=== PATIENT | male | born 1990 | race Caucasian/White ===

== ENCOUNTER 2021-04-11 08:46 | Emergency (ER) | payer BC, SELFPAY ==
[2021-04-11 09:00] VITALS: BP 142/74; PULSE 96; RESP 16; TEMP 38.9; O2SAT 98
--- NOTE | 2021-04-11 09:01 | ED.URI ---
HPI - URI/Sore Throat General Chief Complaint: Upper Respiratory Infection Stated Complaint: cough/shah Time Seen by Provider: 04/11/21 09:20 Source: patient and RN notes reviewed Mode of arrival: ambulatory Limitations: no limitations History of Present Illness HPI Narrative: 30-year-old male presents with concern for cough, body aches, headache, fever. Reports symptoms started overnight while he was at work. Reports yesterday he had a runny nose. He denies shortness of breath. Denies taking [id number] medications. Reports history of ulcerative colitis. MD elicited complaint: fever, cough and sore throat Related Data Allergies Allergy/AdvReac Type Severity Reaction Status Date / Time No Known Allergies Allergy Verified 04/11/21 09:13 Review of Systems Review of Systems: CONSTITUTIONAL: Reports malaise, fever. Denies chills, sweats EYES: Denies visual changes, redness, or discharge. ENT: Reports rhinorrhea, sore throat. Denies congestion, sinus pain, otalgia CARDIOVASCULAR: Denies chest pain, palpitations, or edema. RESPIRATORY: Reports cough. Denies dyspnea. GASTROINTESTINAL: Denies abdominal pain, nausea, vomiting, diarrhea SKIN: Denies rash or itching. MUSCULOSKELETAL: Reports myalgia. NEUROLOGIC: Reports headache. All systems reviewed & are unremarkable except as noted in HPI and below PMFSH Comments At time of signature, agree with nursing past medical, surgical, social and family history. There is no relevant family history pertinent to the presenting complaint Exam Narrative: GENERAL: Nontoxic-appearing, well-nourished, and in no acute distress. HEAD: Normocephalic EYES: PERRLA, conjunctivae clear ENT: Mucous membranes moist. TM pearly ramachandran with dull light reflex bilaterally; no tragal tenderness. NECK: Supple. No lymphadenopathy CHEST: Clear to auscultation, breath sounds equal. No wheezing, rhonchi, rales, or stridor. No respiratory distress, speaks in full sentences. Cough noted HEART: Regular rate and rhythm. No murmur heard. SKIN: Warm, dry, no rash. NEURO: Alert and oriented x3. PSYCH: Normal mood and affect Course Course Emergency Course: Patient is aware of diagnosis, understands and agrees to treatment plan. Anticipatory guidance given. Patient agrees to follow-up as directed and is aware of reasons to seek care at the emergency department. Portions of this record may have been created with voice recognition software Vital Signs Vital signs: Reviewed. MDM - URI/Sore Throat MDM Narrative Medical decision making narrative: Differential diagnosis considered: Moreno virus, strep pharyngitis, allergic rhinitis, upper respiratory tract infection, sinusitis, rhinosinusitis, nasopharyngitis. viral pharyngitis, otitis media, otitis externa, pneumonia, bronchitis, viral cough syndrome, viral syndrome, and influenza. Exam findings show no acute concerns or changes; patient is non-toxic appearing and is in no distress. Patient is appropriate for outpatient treatment and follow-up. Lab Data Attestation: I reviewed the patient's lab results. Critical Care Time Critical Care Time Critical Care Time: No Discharge Plan Discharge Clinical Impression: COVID-19, Influenza A Patient Disposition: Home, Self-Care Condition: Stable Instructions: Antibiotic Form Additional Instructions: Your rapid COVID test was positive today. The following recommendations have been made by the CDC and local Health Departments, regarding COVID-19: -Those individuals with mild cases of COVID-19 can generally be discontinued from isolation, 10 days AFTER the onset of symptoms AND the resolution of fever for 24hrs (without the use of fever-reducing medications) -Those individuals who were asymptomatic, and tested positive, are discontinued from isolation 10 days AFTER their first positive COVID-19 test -Those individuals with SEVERE to CRITICAL illness or immunocompromised diseases may require up to 20 days of home
== END 2021-04-11 09:40 | disposition home or self-care (01) ==
PROVIDERS: Emergency Provider Nurse Practitioner
DX: U07.1 COVID-19 (principal); J10.1 Influenza due to other identified influenza virus with other respiratory manifestations
CPT/HCPCS: 87081; 87426; 87804; 87880; 99203; C9803; G0463

== ENCOUNTER 2021-08-12 10:38 | Emergency (ER) | payer BC, SELFPAY ==
--- NOTE | 2021-08-12 10:48 | WPDEDEXPGENP ---
HPI - General Ped General Chief complaint: Abdominal Pain Stated complaint: BLOOD IN STOOL Time Seen by Provider: 08/12/21 10:48 Source: patient Mode of arrival: ambulatory Limitations: no limitations Nursing Documentation: reviewed/agree History of Present Illness HPI narrative: 31-year-old male presents with complaint of diarrhea for 2 days with drops of bright red blood in toilet. History of UC. Has not seen his GI doctor for 3 to 4 years due to moving away. Denies abdominal pain. States prescription medication that he used to take has no refills. Called a GI doctor this morning but unable to see him for several weeks. Patient did not work. States this morning he had 9 episodes of diarrhea. He has no concerns for hemorrhoids. All systems reviewed and negative except as noted above. Related Data Allergies Allergy/AdvReac Type Severity Reaction Status Date / Time No Known Allergies Allergy Verified 04/11/21 09:13 Pediatric Review of Systems Review of Systems: CONSTITUTIONAL: Denies fever, chills, or sweats. EYES: Denies visual changes, redness, or discharge. ENT: Denies rhinorrhea, congestion, sore throat, or otalgia. CARDIOVASCULAR: Denies chest pain, palpitations, or edema. RESPIRATORY: Denies cough or dyspnea. GASTROINTESTINAL: Denies abdominal pain, nausea, vomiting. Reports diarrhea with blood at times. GENITOURINARY: Denies dysuria or hematuria. SKIN: Denies rash or itching. MUSCULOSKELETAL: Denies back pain, joint pain, or myalgia. NEUROLOGIC: Denies headache, numbness, or weakness. PSYCHIATRIC: Denies anxiety or depression. All other systems reviewed are negative, except as documented in HPI. PMFSH Comments At time of signature, agree with nursing past medical, surgical, social and family history. There is no relevant family history pertinent to the presenting complaint. Pediatric Exam Narrative: Physical exam: GENERAL: This is a well-nourished, well-developed patient, in no apparent distress. HEAD: normocephalic, atraumatic. EYES: PERRL. Sclera clear/white. Vision is grossly intact. EARS: External ears normal NOSE: External nose normal NECK: Neck supple, non-tender without lymphadenopathy, masses or thyromegaly. CARDIOVASCULAR: Regular rate and rhythm without murmurs, gallops, or rubs. RESPIRATORY: Clear to auscultation. Breath sounds equal bilaterally. No wheezes, rales, or rhonchi. GASTROINTESTINAL: Abdomen soft, non-tender, nondistended. Bowel sounds are active. No hepato-splenomegaly, or palpable masses. No guarding. Refuse rectal exam SKIN: warm, Dry, intact with no suspicious lesions or rash, good texture and turgor. NEURO: awake, alert, and oriented to person, place and time. There were no obvious focal neurologic abnormalities. EXTREMITIES: Normal range of motion to all extremities. Course Course Level of Care: Express Care Visit Vital Signs Vital signs: Vital Signs Temperature 36.5 C 08/12/21 10:53 Pulse Rate 64 08/12/21 10:53 Respiratory Rate 16 08/12/21 10:53 Blood Pressure 140/80 08/12/21 10:53 Pulse Oximetry 100 08/12/21 10:53 Temperature 36.5 C 08/12/21 10:53 Pulse Rate 64 08/12/21 10:53 Respiratory Rate 16 08/12/21 10:53 Blood Pressure 140/80 08/12/21 10:53 Pulse Oximetry 100 08/12/21 10:53 Reviewed Medical Decision Making MDM Narrative Medical decision making narrative: Patient complaining of several episodes of diarrhea over the last 2 days with intermittent blood in stool. He is refusing a rectal exam. He wants to be prescribed mesalamine which is the medication that he took for his UC but ran out of refills. He has not seen his GI doctor for 3 to 4 years and was not able to get in with anyone for several weeks. He is well-appearing. Denies abdominal pain is laughing and talkative. Patient is aware of diagnosis, understands and agrees to treatment plan. Anticipatory guidance given. Patient agrees to follow-up as directed and is aware
[2021-08-12 10:53] VITALS: BP 140/80; PULSE 64; RESP 16; TEMP 36.5; O2SAT 100
== END 2021-08-12 11:10 | disposition home or self-care (01) ==
PROVIDERS: Emergency Provider Nurse Practitioner Family
DX: K92.1 Melena (principal)
CPT/HCPCS: 99213; G0463

== ENCOUNTER 2021-12-17 11:23 | Emergency (ER) | payer BC, SELFPAY ==
--- NOTE | 2021-12-17 11:30 | ED.GENADULT ---
HPI - General Adult General Chief complaint: Abdominal Pain Stated complaint: UC flare up Time Seen by Provider: 12/17/21 11:45 Source: patient and RN notes reviewed Mode of arrival: ambulatory Limitations: no limitations History of Present Illness HPI narrative: 31-year-old male presents to the [facility] with complaints of UC flareup. Patient has a history of ulcerative colitis. Patient reports 2 to 3 days of abdominal pain, diarrhea, rectal bleeding and shedding. Patient states he has not had bleeding since yesterday. Currently out of his mesalamine. Did not follow-up with GI after last visit. Has not seen a GI provider in 3 to 4 years. Denies abdominal pain on exam. Any fevers, nausea, vomiting. Was seen last July for the same at urgent care. Was given 8 weeks of medication so he can follow-up with GI Requesting a work note for 7 days Onset (ago): day(s) (2-3) Related Data Allergies Allergy/AdvReac Type Severity Reaction Status Date / Time Penicillins Allergy Other Verified 12/17/21 11:33 ibuprofen AdvReac Other Verified 12/17/21 11:33 Review of Systems Review of Systems: All systems reviewed & are unremarkable except as noted in HPI and below Constitutional: Constitutional: Reports no additional constitutional complaints, Denies chills and Denies fever(s) Eyes: Eyes: Reports no additional eye complaints ENT: Reports system reviewed and no additional complaints, except as documented Cardiovascular: Cardiovascular: Reports no additional cardiovascular complaints Respiratory: Respiratory: Reports no additional respiratory complaints Gastrointestinal: Gastrointestinal: Reports as per HPI, Reports abdominal pain and Reports diarrhea Musculoskeletal: Musculoskeletal: Reports no additional musculoskeletal complaints Integumentary/Breasts: Skin/Breast: Reports system reviewed and no additional complaints, except as docu Neurologic: Reports system reviewed and no additional complaints, except as documented Psychiatric: Psychiatric: Reports no additional psychiatric complaints Allergic/Immunologic: Allergic/Immunologic: Reports no additional allergic/immunologic complaints [facility] Past Medical History Medical History (Updated 12/17/21 @ 17:18 by Kellie Main APRN) Ulcerative colitis Surgical History Surgical History (Updated 12/17/21 @ 17:19 by Kellie Main APRN) No pertinent past surgical history Social History Social History (Updated 12/17/21 @ 17:19 by Kellie Main APRN) Living arrangements: with family Gender identity (if verbalized by the patient): Male Comments At the time of my signature, I reviewed and agree with the nursing past medical, surgical, social, and family history. There is no relevant family history pertinent to the patient complaint. Exam Const: General: healthy appearing, no acute distress and alert Nutritional Appearance: well nourished Orientation/consciousness: patient oriented x3 Limitations: no limitations HENMT: Head: normal to inspection Ears: external ears normal, TM's normal bilaterally and EAC's normal General nose exam: Normal external nose present and Normal nares present Face and sinus: normal facial exam Throat: posterior oropharynx normal and uvula midline Eyes: General: appearance normal, both eyes and all related structures Conjunctivae: conjunctivae normal Pupils: Equal, round and reactive pupils present Neck: Neck: normal visual inspection, no lymphadenopathy and no meningeal signs Chest: Chest palpation & inspection: normal inspection of the chest Resp: Effort & Inspection: normal respiratory effort and no use of accessory muscles Auscultation: clear to auscultation bilaterally, no crackles, no rales, no rhonchi and no wheezes Cardio: Rate: regular rate Rhythm: regular rhythm GI: GI Palp: Yes Soft to palpation and No Tenderness to palpation present (GI) Auscultation: normal bowel sounds Back/Spine/Pelvis: Cervical Spi
[2021-12-17 11:39] VITALS: BP 137/81; PULSE 75; RESP 16; TEMP 36.5; O2SAT 100
== END 2021-12-17 12:03 | disposition home or self-care (01) ==
PROVIDERS: Emergency Provider Nurse Practitioner
DX: K51.90 Ulcerative colitis, unspecified, without complications (principal)
CPT/HCPCS: 99213; G0463

== ENCOUNTER 2021-12-22 10:38 | Outpatient (CLI) | payer BC, SELFPAY ==
[2021-12-22 12:03] LABS: Toxigenic C. Diff NEGATIVE (NEGATIVE)
[2021-12-22 12:57] LABS: Hematocrit 45.9 % (42.0-52.0); Hemoglobin 14.8 g/dL (14.0-18.0); Mean Corpuscular HGB Conc 32.2 g/dl (32-36); Mean Corpuscular Hemoglobin 26.8 pg (26-34); Mean Platelet Volume 10.3 fl (7.4-10.4); Platelet Count Result 347 k/mm3 (150-375); Red Blood Count 5.53 M/mm3 (4.6-6.20); Red Cell Distribution Width 14.1 % (11.5-14.5); White Blood Count 9.8 K/mm3 (4.5-10.0)
[2021-12-22 13:25] LABS: Alanine Aminotransferase 57 U/L (6-50); Albumin Level 4.7 g/dL (3.5-5.1); Alkaline Phosphatase 127 U/L (38-126); Anion Gap 14 mmol/L (8-16); Aspartate Amino Transferase 39 U/L (17-59); Bilirubin,Total 0.5 mg/dL (0.2-1.3); Blood Urea Nitrogen 9 mg/dL (9-20); CRP 0.6 mg/dL (<1.0); Calcium 9.3 mg/dL (8.4-10.2); Carbon Dioxide 26 mmol/L (22-30); Chloride 100 mmol/L (98-107); Estimated Glomerular Filt Rate > 60; Glucose 92 mg/dL (65-110); Potassium 3.6 mmol/L (3.4-5.0); Sodium 140 mmol/L (137-145)
[2021-12-22 13:36] LABS: Erythrocyte Sedimentation Rate 3 mm/hr (0-20)
[2021-12-28 16:47] LABS: Calprotectin, Stool 217 mcg/g
== END 2021-12-22 10:39 | disposition home or self-care (01) ==
PROVIDERS: PCP Nurse Practitioner Family; Visit Provider Nurse Practitioner Family
DX: K51.90 Ulcerative colitis, unspecified, without complications (principal); K92.1 Melena; R19.7 Diarrhea, unspecified
CPT/HCPCS: 36415; 80053; 83993; 85027; 85652; 86140; 87045; 87177; 87209; 87427; 87493

== ENCOUNTER 2022-01-07 01:20 | Day surgery (SDC) | payer BC, SELFPAY ==
[2022-01-04 08:56] VITALS: BMI 35.0
--- NOTE | 2022-01-05 09:23 | PM.HPGS ---
History of Present Illness History of Present Illness Consent: Risks, benefits, and alternatives have been discussed and questions answered. Patient agrees to proceed with procedure. Chief complaint: ulcerative colitis Narrative: Ivan Morales is a 31 year old male with rectal bleeding and diarrhea. He was diagnosed with ulcerative colitis about 5 years ago. He initially was started on mesalamine but had gotten off of that and was on no medication for the last few years. He was seen in urgent care twice in the past 6 months and restarted on mesalamine. He was recently started on a prednisone taper and has improved. His bowel movements now are more like 2-3 a day and a little more formed. He sees blood but only every few days now. When he has a flare-up as he did in July and November, he would have nothing but bloody mucoid stools. Review of Systems Review of Systems: All systems reviewed & are unremarkable except as noted in HPI and below PMFSH Past Medical History Medical History Blood in stool Diarrhea Overweight (BMI 25.0-29.9) Ulcerative colitis Surgical History Surgical History No pertinent past surgical history Social History Social History Smoking status: Former smoker Alcohol intake: never Substance use: never Living arrangements: with friend(s) Additional living arrangements comments: lives with girlfriend Gender identity (if verbalized by the patient): Male Spiritual care concerns: No Meds Home Medications and Allergies Home Medications Medication Instructions Recorded Confirmed Type mesalamine 1.2 gram tablet,delayed 4.8 g PO DAILY 30 days #120 tabs 12/21/21 01/07/22 Rx release prednisone 5 mg tablet 5 mg PO DAILY #70 tabs 12/21/21 01/07/22 Rx Allergies Allergy/AdvReac Type Severity Reaction Status Date / Time Penicillins Allergy Other Verified 01/07/22 07:58 ibuprofen AdvReac Other Verified 01/07/22 07:58 Exam Resp: Auscultation: clear to auscultation bilaterally Cardio: Rate: regular rate Rhythm: regular rhythm GI: GI Palp: Yes Soft to palpation and No Tenderness to palpation present (GI) Assessment and Plan Assessment and plan (1) Ulcerative colitis: Code(s): K51.90 - Ulcerative colitis, unspecified, without complications Status: Acute Assessment and Plan: Colonoscopy with possible biopsy or polypectomy or cautery or injection of substances.
--- NOTE | 2022-01-06 10:11 | WPDANESEPPF ---
Anes - Initial Pre Proc Eval Procedure: Operation Date: 01/07/22 09:15 Proposed Procedures p Colonoscopy - Pavel Patel MD Date/Time: 01/06/22 10:11 Surgeon: Pavel Patel MD Pre Op Diagnosis: ulcerative colitis Patient Data Age: 31 Gender: M Height: 1.85 m Weight: 120.5 kg Allergies Allergy/AdvReac Type Severity Reaction Status Date / Time Penicillins Allergy Other Verified 01/07/22 07:58 ibuprofen AdvReac Other Verified 01/07/22 07:58 Home Medications Medication Instructions Recorded Confirmed Type mesalamine 1.2 gram tablet,delayed 4.8 g PO DAILY 30 days #120 tabs 12/21/21 01/07/22 Rx release prednisone 5 mg tablet 5 mg PO DAILY #70 tabs 12/21/21 01/07/22 Rx Patient hx anesthesia problems: none Family hx anesthesia problems: none Results Review: All pre-operative results and documents have been reviewed as part of the pre-operative evaluation. [facility] Past Medical History Medical History Blood in stool Diarrhea Overweight (BMI 25.0-29.9) Ulcerative colitis Surgical History Surgical History No pertinent past surgical history Social History Social History Smoking status: Former smoker Alcohol intake: never Substance use: never Living arrangements: with friend(s) Additional living arrangements comments: lives with girlfriend Gender identity (if verbalized by the patient): Male Spiritual care concerns: No Anes - Eval Final PreProcedure Day of Procedure 01/06/22 10:11 Patient weight: obese Heart: regular rate and rhythm Lungs: clear to auscultation Airway: Mallampati scale class II Neurological: alert and oriented Last oral intake: >/= 8 hours ASA classification: II Emergent: no Anesthetic plan: proceed Anesthesia type and monitoring: general GIVS and standard monitoring Results Review: All pre-operative results and documents have been reviewed as part of the pre-operative evaluation. Informed Consent: The patient's anesthetic plan and its attendant risks and benefits were discussed with the patient/family/POA. Questions were solicited and answers provided to the satisfaction of the patient/family/POA.
[2022-01-07 07:48] VITALS: BP 124/79; PULSE 85; RESP 18; TEMP 36.5; O2SAT 99; BMI 33.8
[2022-01-07] MEDS: LACTATED RINGERS 1,000 ML 150 ML IV CONT (08:08)
[2022-01-07 09:51] VITALS: BP 115/76; PULSE 78; RESP 20; O2SAT 98
[2022-01-07 10:01] VITALS: BP 117/76; PULSE 72; RESP 20; O2SAT 97
[2022-01-07 10:11] VITALS: BP 113/76; PULSE 70; RESP 18; O2SAT 98
== END 2022-01-07 10:21 | disposition home or self-care (01) ==
PROVIDERS: PCP Nurse Practitioner Family; Visit Provider Internal Medicine Gastroenterology
PROC: 0DJD8ZZ Inspection of Lower Intestinal Tract, Via Natural or Artificial Opening Endoscopic (ICD-10-PCS; CPT 45378; principal; 2022-01-07 09:15)
DX: Z12.11 Encounter for screening for malignant neoplasm of colon (principal); K51.50 Left sided colitis without complications; K52.89 Other specified noninfective gastroenteritis and colitis; Z87.891 Personal history of nicotine dependence; E66.9 Obesity, unspecified; Z68.33 Body mass index [BMI] 33.0-33.9, adult
CPT/HCPCS: 45380; 88305; J2704; J7120

== ENCOUNTER 2022-09-06 17:57 | Emergency (ER) | payer OTHER, SELFPAY ==
[2022-09-06 18:15] VITALS: BP 152/76; PULSE 85; RESP 20; TEMP 36.2; O2SAT 99
[2022-09-06 21:21] VITALS: BP 134/72; PULSE 77; RESP 16; TEMP 36.3; O2SAT 94
[2022-09-06 23:09] LABS: Basophils Absolute Auto 0.1 K/mm3 (0.0-0.1); Basophils Percent Auto 0.8 % (0.2-1.2); Eosinophils Absolute Auto 0.5 K/mm3 (0-0.3); Eosinophils Percent Auto 3.9 % (0-4.4); Immature Granulocyte Absolute 0.11 K/mm3 (0.00-0.031); Immature Granulocyte Percent A 0.9 % (0-0.5); Mean Corpuscular HGB Conc 31.9 g/dl (32-36); Mean Corpuscular Hemoglobin 26.5 pg (26-34); Mean Corpuscular Volume 82.9 fl (80-100); Monocytes Absolute Auto 1.2 K/mm3 (0.1-0.6); Monocytes Percent Auto 10.4 % (2.6-8.5); Neutrophils Absolute Auto 7.2 K/mm3 (1.3-6.7); Platelet Count Result 301 k/mm3 (150-375); Red Blood Count 5.67 M/mm3 (4.6-6.20); Red Cell Distribution Width 14.8 % (11.5-14.5); White Blood Count 11.7 K/mm3 (4.5-10.0)
[2022-09-06 23:19] LABS: Alanine Aminotransferase 51 U/L (6-50); Albumin Level 4.5 g/dL (3.5-5.1); Alkaline Phosphatase 111 U/L (38-126); Anion Gap 7 mmol/L (8-16); Aspartate Amino Transferase 33 U/L (17-59); Bilirubin,Total 0.5 mg/dL (0.2-1.3); Blood Urea Nitrogen 14 mg/dL (9-20); Calcium 9.1 mg/dL (8.4-10.2); Carbon Dioxide 32 mmol/L (22-30); Chloride 103 mmol/L (98-107); Estimated CRCL calculation 123 ml/min; Estimated Glomerular Filt Rate > 60; Glucose 94 mg/dL (65-110); Potassium 3.7 mmol/L (3.4-5.0); Sodium 142 mmol/L (137-145)
[2022-09-06 23:32] VITALS: BP 142/91; PULSE 69; RESP 18; O2SAT 100
--- NOTE | 2022-09-06 23:43 | ED.GENADULT ---
HPI - General Adult General Chief complaint: Unspecified <CHRISTOPHE Tavares Filed: 09/07/22 04:25> Stated complaint: ruptured hemorrhoid <CHRISTOPHE Tavares Last Filed: 09/07/22 04:25> Time Seen by Provider: 09/06/22 22:50 <CHRISTOPHE Tavares Last Filed: 09/07/22 04:25> Source: patient <CHRISTOPHE Tavares Filed: 09/07/22 04:25> Mode of arrival: ambulatory <CHRISTOPHE Tavares Filed: 09/07/22 04:25> Limitations: no limitations <CHRISTOPHE Tavares Filed: 09/07/22 04:25> History of Present Illness HPI narrative: Patient is a 32 y/o male who presents to the ED with c/o bleeding hemorrhoid. Patient has Hx of UC, on Mesalamine. He states he noted a hemorrhoid longed to his left perianal region 2 days ago. It was not significantly tender at that time. This morning while at work, patient states he was carrying a 50 pound bag of a flight of stairs and felt a sharp pain in his rectum. He then felt a wetness in his pants. He noted blood coming from that region. The hemorrhoid swelling has since decreased, but patient has had persistent bleeding. He has been using gauze pads. He has some discomfort noted to that region, but otherwise denies any pain. His last bowel movement was 2 hours ago. Denies significant discomfort with this. Denies diarrhea or melena. Denies abdominal pain, nausea, vomiting, fevers. Patient does not currently follow with a GI specialist. <CHRISTOPHE Tavares Filed: 09/07/22 04:25> Related Data Allergies/adverse reactions: Allergies Allergy/AdvReac Type Severity Reaction Status Date / Time Penicillins Allergy Other Verified 09/06/22 23:29 ibuprofen AdvReac Other Verified 09/06/22 23:29 <CHRISTOPHE Tavares Last Filed: 09/07/22 04:25> Review of Systems Review of Systems: CONSTITUTIONAL: Denies fever, chills, or sweats. GASTROINTESTINAL: See HPI. GENITOURINARY: Denies dysuria or hematuria. SKIN: Denies rash or itching. MUSCULOSKELETAL: Denies back pain, joint pain, or myalgia. <Izzy Feliz PA-C - Last Filed: 09/07/22 04:25> All systems reviewed & are unremarkable except as noted in HPI and below <Izzy Feliz PA-C - Last Filed: 09/07/22 04:25> [facility] Past Medical History Medical History: Medical History Blood in stool Diarrhea Overweight (BMI 25.0-29.9) Ulcerative colitis <Izzy Feliz PA-C - Last Filed: 09/07/22 04:25> Surgical History Surgical History: Surgical History No pertinent past surgical history <Izzy Feliz PA-C - Last Filed: 09/07/22 04:25> Social History Social History: Social History Smoking status: Former smoker Alcohol intake: never Substance use: never Living arrangements: with friend(s) Additional living arrangements comments: lives with girlfriend Gender identity (if verbalized by the patient): Male Spiritual care concerns: No <Izzy Feliz PA-C - Last Filed: 09/07/22 04:25> Exam Narrative: GENERAL: Well appearing, obese with BMI of 33.4, non-toxic, in no acute distress. HEAD: Normocephalic, atraumatic. NECK: Supple. No adenopathy, no masses. RESPIRATORY: Airway patent, respirations nonlabored. Clear to auscultation bilaterally, no rales, rhonchi, wheezing. CARDIOVASCULAR: Regular rate and rhythm without murmurs, rubs, or gallops. Peripheral pulses 2+ and equal bilaterally. ABDOMINAL: Soft, no tenderness throughout abdomen, nondistended, no hepatosplenomegaly. Normoactive BS. RECTAL: Area of slight swelling and evidence of thrombosed hemorrhoid to 3:00 location of the anus. Pinpoint area of bleeding from hemorrhoid clot. Tenderness to palpation focally over area of he
[2022-09-07] MEDS: PHENYLEPH/MINERAL OIL/PETROLAT OINTMENT 57 GM 1 APPLIC RECTAL (00:26)
== END 2022-09-07 00:35 | disposition home or self-care (01) ==
PROVIDERS: Emergency Provider Physician Assistant
DX: K64.5 Perianal venous thrombosis (principal)
CPT/HCPCS: 36415; 80053; 85025; 99283; A9270

== ENCOUNTER 2023-04-27 16:10 | Emergency (ER) | payer OTHER, SELFPAY ==
--- NOTE | ~2023-04-27 | XR_ITS ---
EXAMINATION: XR tibia fibula RT 2V DATE: 04/27/2023 16:55 INDICATION: Right lower leg pain and swelling and erythema. TECHNIQUE: 2 views of right tibia and fibula were obtained. COMPARISON: None. FINDINGS: Bone alignment is normal. No fracture. Joint spaces are normal. IMPRESSION: 1. Normal right tibia and fibula. Reviewed, dictated and finalized at location E. [employer] OFF[employer]ER
[2023-04-27 16:27] VITALS: BP 133/84; PULSE 83; RESP 16; TEMP 36.6; O2SAT 100
--- NOTE | 2023-04-27 16:36 | ED.SKABFB ---
HPI - Skin/Abscess/Foreign Bdy General Chief complaint: Skin/Abscess/Foreign Body Stated complaint: BUMP ON LOWER R LEG/HEEL & ANKLE PAIN Time Seen by Provider: 04/27/23 16:36 Source: patient Mode of arrival: ambulatory Limitations: no limitations History of Present Illness HPI narrative: 33 y/o male presented for c/o reddened tender raised area to right lower leg increasing in size for 2 weeks. Denies injury. Pain is worse with walking. Rates pain 2/10. Pt also reports bilateral heel pain, for about the same length of time. 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 Pain radiates up to the knees, and is worse on the left leg/heel. Heel pain is worse in the morning, described as tightness. Denies numbness, tingling or weakness of the legs. Not taking anything for pain, Unable to take NSAIDs due to UC. Related Data Allergies Allergy/AdvReac Type Severity Reaction Status Date / Time ibuprofen AdvReac Intermediate Gastrointestinal Verified 04/27/23 16:36 Upset Penicillins AdvReac Mild Hives Verified 04/27/23 16:36 Review of Systems Review of Systems: CONSTITUTIONAL: Denies body aches, fever, chills, or sweats. EYES: Denies visual changes, redness, or discharge. ENT: Denies rhinorrhea, congestion CARDIOVASCULAR: Denies chest pain, palpitations, or edema. RESPIRATORY: Denies cough or dyspnea. GASTROINTESTINAL: Denies abdominal pain, nausea, vomiting, or diarrhea. SKIN: reports red area RLE MUSCULOSKELETAL: Reports heel pain Denies back pain, or myalgia. NEUROLOGIC: Denies headache, numbness, tingling, or weakness. [facility] Past Medical History Medical History Blood in stool Diarrhea Overweight (BMI 25.0-29.9) Ulcerative colitis Surgical History Surgical History No pertinent past surgical history Social History Social History Smoking status: Former smoker Alcohol intake: never Substance use: never Living arrangements: with friend(s) Additional living arrangements comments: lives with girlfriend Gender identity (if verbalized by the patient): Male Spiritual care concerns: No Comments At time of signature, I have reviewed and agree with nursing past medical, surgical, social and family history unless otherwise noted. Please see nursing chart for further information. There is no relevant family history pertinent to the presenting complaint Exam Narrative: GENERAL: Well-appearing ENT: Mucous membranes moist. CHEST: Clear to auscultation. HEART: Regular rate and rhythm. MUSC: RLE lower leg anterior/medial aspect with approx 5cm diameter circular slightly erythematous and slightly raised area; regular border, firm, minimally tender. No fluctuance or induration. Nontender heels to plantar surface. Full ROM to ankles/feet. Normal gait. SKIN: Warm, dry. Bilateral heel tenderness at achilles insertion site. No erythema or swelling. NEURO: Alert and oriented x3. Extrem: Upper/lower leg/hip images: 1. area of red subcutaneous round nodule 5cm diameter Ankle/foot/toe images: 1. site of heel pain 2. site of heel pain Course Course Emergency Course: Patient is aware of diagnosis, understands and agrees to treatment plan. Anticipatory guidance given. Patient agrees to follow-up as directed and is aware of reasons to seek care at the emergency department. Portions of this record may have been created with voice recognition software Level of Care: Express Care Visit Vital Signs Vital signs: Vital Signs Temperature 98 F 04/27/23 16:27 Pulse Rate 83 04/27/23 16:27 Respiratory Rate 16 04/27/23 16:27 Blood Pressure 133/84 04/27/23 16:27 Pulse Oximetry 100 04/27/23 16:27 Temperature 98 F 04/27/23 16:27 Pulse Rate 83 04/27/23 16:27 Respiratory Rate 16 04/27/23 16:27 B
== END 2023-04-27 17:16 | disposition home or self-care (01) ==
PROVIDERS: Emergency Provider Nurse Practitioner Family
DX: M77.51 Other enthesopathy of right foot and ankle (principal); R22.41 Localized swelling, mass and lump, right lower limb; Z87.891 Personal history of nicotine dependence
CPT/HCPCS: 73590; 99213; G0463

== ENCOUNTER 2023-05-17 15:33 | Emergency (ER) | payer OTHER, SELFPAY ==
--- NOTE | ~2023-05-17 | CT_ITS ---
Clinical Indication: Dyspnea CT Scan of the Chest with Contrast: Technique: Contiguous sections were acquired throughout the chest after intravenous administration of 100 cc of Omnipaque 350. Dose reduction technique was used on this scan by utilizing automated expos ure control and iterative reconstruction technique. The dose-length product (DLP) was 719.17 mGy-cm. Findings: There is no evidence of any significant mediastinal, hilar or axillary lymphadenopathy. There is no f illing defect in the pulmonary arterial tree to suggest pulmonary embolus. There is no evidence of ao rtic dissection or aneurysm. There is no evidence of pleural or pericardial effusion. The lungs are clear. No pulmonary nodules or infiltrates are noted. Images through the upper abdomen reveal no abnormalities. Impression: No evidence of pulmonary embolus, aortic dissection, or aortic aneurysm. Clear lungs. Reviewed, dictated and finalized at [facility]. IN COLLECTOR Impression: No evidence of pulmonary embolus, aortic dissection, or aortic aneurysm. Clear lungs.
--- NOTE | ~2023-05-17 | XR_ITS ---
EXAMINATION: XR chest 2V DATE: 05/17/2023 22:26 INDICATION: Chest pain. TECHNIQUE: Frontal and lateral views of the chest were obtained. COMPARISON: None. FINDINGS: There is mild atelectasis in left lower lung zone. There is no pneumonia, pleural effusion, or pneumothorax. The heart size is normal. IMPRESSION: 1. Mild atelectasis in left lower lung zone. Reviewed, dictated and finalized at [facility]
[2023-05-17 15:38] VITALS: BP 135/76; PULSE 78; RESP 20; TEMP 36.8; O2SAT 100
--- NOTE | 2023-05-17 15:45 | ECG_ITS ---
Measurements Intervals [place] Rate: 78 P: 36 NC: 140 QRS: 34 QRSD: 121 T: 5 QT: 349 QTc: 400 Interpretive Statements SINUS RHYTHM INCOMPLETE RIGHT BUNDLE BRANCH BLOCK BORDERLINE T WAVE ABNORMALITY- INFERIOR LEADS BORDERLINE ECG NO PREVIOUS ECG AVAILABLE FOR COMPARISON Electronically Signed On 05-17-2023 15:58:17 RUG REPAIRER by Robin Zuñiga D.O.
[2023-05-17 21:49] VITALS: BP 135/72; PULSE 77; RESP 20; O2SAT 100
--- NOTE | 2023-05-17 21:51 | PC.NURSE ---
patient states that the swelling in left leg has doubled in size since being here. offered elevation. patient refused. states that he has been moving the legs and doing small exercises while waiting. new set of vitals obtained and WNL
--- NOTE | 2023-05-17 22:16 | ECG_ITS ---
Measurements Intervals [place] Rate: 80 P: 33 MI: 130 QRS: 32 QRSD: 122 T: 26 QT: 351 QTc: 407 Interpretive Statements SINUS RHYTHM INCOMPLETE RIGHT BUNDLE BRANCH BLOCK NONSPECIFIC T-WAVE ABNORMALITY- INFERIOR LEADS ABNORMAL ECG COMPARED TO ECG 05/17/2023 15:56:14 NO SIGNIFICANT CHANGES Electronically Signed On 05-18-2023 6:46:11 TRIMMING MACHINE OPERATOR by Robin Zuñiga D.O.
[2023-05-17 22:47] LABS: Basophils Absolute Auto 0.1 K/mm3 (0.0-0.1); Basophils Percent Auto 0.7 % (0.2-1.2); Eosinophils Absolute Auto 0.5 K/mm3 (0-0.3); Eosinophils Percent Auto 4.3 % (0-4.4); Hematocrit 45.6 % (42.0-52.0); Hemoglobin 13.9 g/dL (14.0-18.0); Immature Granulocyte Absolute 0.09 K/mm3 (0.00-0.031); Immature Granulocyte Percent A 0.7 % (0-0.5); Lymphocytes Absolute Auto 1.49 K/mm3 (0.9-3.2); Lymphocytes Percent Auto 12.2 % (18.3-44.2); Mean Corpuscular HGB Conc 30.5 g/dl (32-36); Mean Corpuscular Hemoglobin 24.6 pg (26-34); Mean Corpuscular Volume 80.9 fl (80-100); Mean Platelet Volume 9.6 fl (7.4-10.4); Monocytes Absolute Auto 1.3 K/mm3 (0.1-0.6); Neutrophils Absolute Auto 8.7 K/mm3 (1.3-6.7); Neutrophils Percent Auto 71.1 % (45.5-73.1); Platelet Count Result 430 k/mm3 (150-375); Red Blood Count 5.64 M/mm3 (4.6-6.20); Red Cell Distribution Width 13.5 % (11.5-14.5); White Blood Count 12.2 K/mm3 (4.5-10.0)
[2023-05-17 22:59] LABS: Alanine Aminotransferase 50 U/L (6-50); Albumin Level 4.4 g/dL (3.5-5.1); Alkaline Phosphatase 128 U/L (38-126); Anion Gap 7 mmol/L (8-16); Aspartate Amino Transferase 32 U/L (17-59); Bilirubin,Total 0.6 mg/dL (0.2-1.3); Blood Urea Nitrogen 17 mg/dL (9-20); Carbon Dioxide 33 mmol/L (22-30); Chloride 100 mmol/L (98-107); Estimated CRCL calculation 110 ml/min; Estimated Glomerular Filt Rate > 60; Glucose 104 mg/dL (65-110); Lipase 73 U/L (23-300); Potassium 3.9 mmol/L (3.4-5.0); Sodium 140 mmol/L (137-145)
[2023-05-17 23:09] LABS: INR 1.1; Prothrombin Time 14.4 Seconds (11.1-14.7)
[2023-05-17 23:11] LABS: Troponin I < 0.012 ng/mL (0.000-0.034)
[2023-05-17 23:54] VITALS: BP 137/71; PULSE 77; RESP 15; O2SAT 100
[2023-05-18 01:46] LABS: Lactic Acid Reflex 0.8 mmol/L (0.7-2.0)
[2023-05-18 01:49] LABS: CRP 6.4 mg/dL (<1.0); Magnesium 2.2 mg/dL (1.6-2.3)
[2023-05-18 01:59] LABS: NT Pro B Type Natriuretic Pept < 20 pg/mL (19.9-100); Troponin I < 0.012 ng/mL (0.000-0.034)
[2023-05-18 02:03] LABS: Procalcitonin 0.1 ng/mL
[2023-05-18 02:09] LABS: Erythrocyte Sedimentation Rate 15 mm/hr (0-20)
[2023-05-18 02:16] LABS: Influenza A QL RT-PCR Negative (Negative); Influenza B QL RT-PCR Negative (Negative); RSV RNA, RT-PCR Negative (Negative); SARS-CoV-2 RNA PCR Negative (Negative)
[2023-05-18] MEDS: MORPHINE SULFATE (*CRX) 4 MG/ML INJ IV PUSH (02:48)
[2023-05-18 02:49] VITALS: BP 132/80; PULSE 87; RESP 16; O2SAT 99
--- NOTE | 2023-05-18 04:15 | ED.GENADULT ---
HPI - General Adult General Chief complaint: Extremity Problem,Nontraumatic Stated complaint: bilateral ankle swelling/no injury Time Seen by Provider: 05/18/23 00:00 History of Present Illness HPI narrative: Patient is a 33-year-old gentleman who presents emergency department with chief complaint of lower extremity swelling and shortness of breath and chest discomfort. The patient states that he has had pain with ambulation and states that as he tries to use crutches at home he has difficulty now. The patient states that he initially had been placed in a boot on his left lower extremity and is scheduled to have a ultrasound on his Achilles this morning at [place] the patient reports that he has had subsequent swelling in his left knee and reports that he has been not really ambulatory for the last several weeks. Patient reports that he at this gastric irritation from nonsteroidals patient reports no prior history of arthritic conditions reports no prior history of thromboembolic disease. Related Data Allergies Allergy/AdvReac Type Severity Reaction Status Date / Time ibuprofen AdvReac Intermediate Gastrointestinal Verified 05/17/23 23:56 Upset Penicillins AdvReac Mild Hives Verified 05/17/23 23:56 Review of Systems Review of Systems: A 10 system review of systems was completed on the patient and is negative except for what is stated in the HPI. Nursing and ancillary documentation was reviewed. [facility] Past Medical History Medical History Blood in stool Diarrhea Overweight (BMI 25.0-29.9) Ulcerative colitis Surgical History Surgical History No pertinent past surgical history Social History Social History Smoking status: Former smoker Alcohol intake: never Substance use: never Living arrangements: with friend(s) Additional living arrangements comments: lives with girlfriend Gender identity (if verbalized by the patient): Male Spiritual care concerns: No Exam Narrative: GENERAL: Well-appearing, well-nourished, and in no acute distress. HEAD: Normocephalic, atraumatic. EYES: PERRLA and EOMI. ENT: Nares clear, no rhinorrhea or epistaxis. Mucous membranes moist. NECK: Supple. CHEST: Clear to auscultation. No respiratory distress. HEART: Regular rate and rhythm. No murmur heard. Normal peripheral pulses. ABDOMEN: Soft, nontender, nondistended, normal active bowel sounds. EXTREMITIES: Normal range of motion. No edema. Good dorsalis pedis present in both lower extremities, negative Fleming test, there is an effusion present on the left knee SKIN: Warm, dry, no rash. NEURO: No focal deficits. Alert and oriented x3. PSYCH: Normal mood and affect. Course Vital Signs Vital signs: Vital Signs Temperature 36.8 C 05/17/23 15:38 Pulse Rate 78 05/17/23 15:38 Respiratory Rate 20 05/17/23 15:38 Blood Pressure 135/76 05/17/23 15:38 Pulse Oximetry 100 05/17/23 15:38 Oxygen Delivery Room Air 05/17/23 15:38 Temperature 36.8 C 05/17/23 15:38 Pulse Rate 87 05/18/23 02:49 Respiratory Rate 16 05/18/23 02:49 Blood Pressure 132/80 05/18/23 02:49 Pulse Oximetry 99 05/18/23 02:49 Oxygen Delivery Room Air 05/17/23 23:54 Medical Decision Making [facility] Narrative Medical decision making narrative: Differential diagnosis includes CHF, pulmonary embolism, deconditioning, DVT left lower extremity, de deconditioning Laboratory studies were obtained on the patient which showed negative COVID negative flu CRP was elevated at 6.4 troponin was negative electrolytes are within normal limits CBC showed a white count of 12.2 Chest x-ray showed no focal infiltrate EKG showed no acute ischemic changes The CTA of the chest was obtained to evaluate for possible pulmonary embolism this was ne
[2023-05-18] MEDS: methylPREDNISolone SOD SUCC 125 MG VIAL IV PUSH (04:33)
[2023-05-18 05:34] VITALS: BP 128/79; PULSE 82; RESP 17; O2SAT 100
== END 2023-05-18 05:10 | disposition home or self-care (01) ==
PROVIDERS: Emergency Provider Emergency Medicine
DX: R06.00 Dyspnea, unspecified (principal); M79.605 Pain in left leg; Z20.822 Contact with and (suspected) exposure to COVID-19; E66.3 Overweight; Z68.32 Body mass index [BMI] 32.0-32.9, adult; I45.10 Unspecified right bundle-branch block; R94.31 Abnormal electrocardiogram [ECG] [EKG]
CPT/HCPCS: 36415; 71046; 71275; 80053; 83605; 83690; 83735; 83880; 84145; 84484; 85025; 85610; 85652; 85730; 86140; 87637; 93005; 96374; 96375; 99284; J2270; J2930; Q9967

== ENCOUNTER 2024-06-05 10:04 | Emergency (ER) | payer BC, SELFPAY ==
--- NOTE | 2024-06-05 10:05 | ED.URI ---
HPI - URI/Sore Throat General Chief Complaint: Upper Respiratory Infection Stated Complaint: Flu Symptoms Source: patient and RN notes reviewed Mode of arrival: ambulatory Limitations: no limitations History of Present Illness HPI Narrative: Patient is a 34-year-old male who presents to the [facility] with multiple complaints. Patient states that he has had a headache, congestion, and cough since Tuesday. He endorses a frequent productive cough with yellow/ white sputum. Denies chest pain or shortness of breath. Unsure fevers but reports sweats and chills. Patient also endorses increased fatigue. His son and are sick with similar symptoms. Related Data Home Medications ?Medication ?Instructions ?Recorded ?Confirmed ?Last Taken ?Type No Home Medications 06/05/24 06/05/24 Unknown History Allergies Allergy/AdvReac Type Severity Reaction Status Date / Time ibuprofen AdvReac Intermediate Gastrointestinal Verified 06/05/24 10:16 Upset Penicillins AdvReac Mild Hives Verified 06/05/24 10:16 Review of Systems Review of Systems: CONSTITUTIONAL: Reports chills and sweats. EYES: Denies visual changes, redness, or discharge. ENT: Denies otalgia and sore throat. Reports congestion. CARDIOVASCULAR: Denies chest pain, palpitations, or edema. RESPIRATORY: Reports cough but denies dyspnea. GASTROINTESTINAL: Denies abdominal pain, nausea, vomiting, or diarrhea. GENITOURINARY: Denies dysuria or hematuria. SKIN: Denies rash or itching. MUSCULOSKELETAL: Denies back pain, joint pain, but reports myalgia. NEUROLOGIC: Reports headache but denies numbness or weakness. Pertinent positives per HPI. [facility] Past Medical History Medical History Overweight (BMI 25.0-29.9) Diarrhea Blood in stool Ulcerative colitis Surgical History Surgical History No pertinent past surgical history Social History Social History Smoking status: Former smoker Alcohol intake: never Substance use: never Living arrangements: with friend(s) Additional living arrangements comments: lives with girlfriend Gender identity (if verbalized by the patient): Male Spiritual care concerns: No Comments At the time of my signature, I reviewed and agree with the nursing past medical, surgical, social, and family history. There is no relevant family history pertinent to the patient complaint. Exam Narrative: GENERAL: This is a well-nourished, well-developed patient, in no apparent distress. HEAD: normocephalic, atraumatic. EYES: PERRL. Sclera clear/white. Vision is grossly intact. EARS: External ears normal, auditory canals clear and without drainage, TMs normal without perforation. Hearing grossly intact. NOSE: External nose normal with no obvious nasal discharge, nares without redness, no rhinorrhea. THROAT: Mucous membranes moist, posterior pharynx clear. NECK: Neck supple, non-tender without lymphadenopathy, masses or thyromegaly. CARDIOVASCULAR: Regular rate and rhythm without murmurs, gallops, or rubs. RESPIRATORY: Clear to auscultation. Breath sounds equal bilaterally. No wheezes, rales, or rhonchi. GASTROINTESTINAL: Abdomen soft, non-tender, nondistended. Bowel sounds are active. No hepato-splenomegaly, or palpable masses. No guarding. SKIN: warm, intact with no suspicious lesions or rash, good texture and turgor. NEURO: awake, alert, and oriented to person, place and time. There were no obvious focal neurologic abnormalities. EXTREMITIES: No clubbing, cyanosis, or edema. No joint tenderness, effusion, or edema noted. BACK: Nontender without deformity or crepitance. No flank tenderness. Course Course Level of Care: Express Care Visit Vital Signs Vital signs: Vital Signs Temperature 98.1 F 06/05/24 10:27 Pulse Rate 86 06/05/24 10:27 Respiratory Rate 16 06/05/24 10:27 Blood Pressure 129/77 06/05/24 10:27 Pulse Oximetry 100 06/05/24 10:27 Temperature 98.1 F 06/05/24 10:27 Pulse Rate 86 06/05/24 10:27 Respiratory Rate 16 06/05/24 10:27 Blood Pressure 129/77 06/05/24 10:27 Pulse Oximetry 100 06/05/24 10:27 Reviewed MDM - URI/Sore Throat MDM Narrative Medical decision making narrative: Viral illness may last between 7-21 days; antibiotics do not cure viral illness and are NOT recommended at this time. Also, recommend symptomatic treatment includes: rest, fluids, and increase humidity of the air at home. Recommend Acetaminophen as directed on the bottle to reduce fever, pain, headache. Please schedule a follow-up visit with your personal physician for further evaluation and treatment within 3-5days. If your symptoms persist, change or worsen significantly before you can contact your personal physician then please, without delay, go to the emergency department for further evaluation. Differential Diagnosis Differential diagnosis: Likely upper respiratory infection, sinusitis, viral infection, influenza and other (covid) Lab Data Attestation: I reviewed the patient's lab results. Labs: Lab Results 06/05/24 Range/Units 10:45 POC Influenza A Ag Negative (Negative) POC Influenza B Ag Negative (Negative) POC SARS CoV-2 Ag Negative (Negative) Critical Care Time Critical Care Time Critical Care Time: No Discharge Plan Discharge Clinical Impression: Viral illness Patient Disposition: Home, Self-Care Condition: Stable Instructions: Viral Syndrome (ED) Additional Instructions: Viral illness may last between 7-21 days; antibiotics do not cure viral illness and are NOT recommended at this time. Also, recommend symptomatic treatment includes: rest, fluids, and increase humidity of the air at home. Recommend Acetaminophen as directed on the bottle to reduce fever, pain, headache. Please schedule a follow-up visit with your personal physician for further evaluation and treatment within 3-5days. If your symptoms persist, change or worsen significantly before you can contact your personal physician then please, without delay, go to the emergency department for further evaluation. Patient Language: Malawian Prescriptions: No Action No Home Medications Follow-up/Referrals: UNKNOWN,DOCTOR [Non-Staff] - Stand Alone Forms: Work/School Release IP Time of Disposition: 10:48
[2024-06-05 10:27] VITALS: BP 129/77; PULSE 86; RESP 16; TEMP 36.7; O2SAT 100
[2024-06-05 10:47] LABS: EDCOVIDSCREEN Negative (Negative); EDINFLUASCREEN Negative (Negative); EDINFLUBSCREEN Negative (Negative)
== END 2024-06-05 10:55 | disposition home or self-care (01) ==
PROVIDERS: Emergency Provider Nurse Practitioner
DX: B34.9 Viral infection, unspecified (principal); Z20.822 Contact with and (suspected) exposure to COVID-19; Z87.891 Personal history of nicotine dependence
CPT/HCPCS: 87426; 87804; 99212; G0463

== ENCOUNTER 2024-06-08 14:30 | Emergency (ER) | payer BC, SELFPAY ==
[2024-06-08 14:40] VITALS: BP 130/79; PULSE 84; RESP 16; TEMP 36.3; O2SAT 100
--- NOTE | 2024-06-08 14:47 | ED_ITS ---
HPI - URI/Sore Throat General Chief Complaint: Upper Respiratory Infection Stated Complaint: COUGH/CONGESTION Time Seen by Provider: 06/08/24 14:47 Source: patient Mode of arrival: ambulatory Limitations: no limitations History of Present Illness HPI Narrative: 34-year-old male here for work release. Patient states that he was seen here on Tuesday. Was given a note to return today. Went in to work and was sent home. 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 Patient states he is feeling better. All systems reviewed and negative except as noted above. Related Data Home Medications ?Medication ?Instructions ?Recorded ?Confirmed ?Last Taken ?Type No Home Medications 06/05/24 06/05/24 Unknown History Allergies Allergy/AdvReac Type Severity Reaction Status Date / Time ibuprofen AdvReac Intermediate Gastrointestinal Verified 06/08/24 14:42 Upset Penicillins AdvReac Mild Hives Verified 06/08/24 14:42 Review of Systems Review of Systems: CONSTITUTIONAL: Denies fever, chills, or sweats. EYES: Denies visual changes, redness, or discharge. ENT: Denies rhinorrhea, congestion, sore throat, or otalgia. CARDIOVASCULAR: Denies chest pain, palpitations, or edema. RESPIRATORY: Denies cough or dyspnea. GASTROINTESTINAL: Denies abdominal pain, nausea, vomiting, or diarrhea. GENITOURINARY: Denies dysuria or hematuria. SKIN: Denies rash or itching. MUSCULOSKELETAL: Denies back pain, joint pain, or myalgia. NEUROLOGIC: Denies headache, numbness, or weakness. PSYCHIATRIC: Denies anxiety or depression. All other systems reviewed are negative, except as documented in HPI. [facility] Past Medical History Medical History Overweight (BMI 25.0-29.9) Diarrhea Blood in stool Ulcerative colitis Surgical History Surgical History No pertinent past surgical history Social History Social History Smoking status: Former smoker Alcohol intake: never Substance use: never Living arrangements: with friend(s) Additional living arrangements comments: lives with girlfriend Gender identity (if verbalized by the patient): Male Spiritual care concerns: No Comments At time of signature, agree with nursing past medical, surgical, social and family history. There is no relevant family history pertinent to the presenting complaint. Exam Narrative: GENERAL: This is a well-nourished, well-developed patient, in no apparent distress. HEAD: normocephalic, atraumatic. EYES: PERRL. Sclera clear/white. Vision is grossly intact. EARS: External ears normal, auditory canals clear and without drainage, TMs normal without perforation. Hearing grossly intact. NOSE: External nose normal with no obvious nasal discharge, nares without redness, no rhinorrhea. THROAT: Mucous membranes moist, posterior pharynx clear. NECK: Neck supple, non-tender without lymphadenopathy, masses or thyromegaly. CARDIOVASCULAR: Regular rate and rhythm without murmurs, gallops, or rubs. RESPIRATORY: Clear to auscultation. Breath sounds equal bilaterally. No wheezes, rales, or rhonchi. SKIN: warm, Dry, intact with no suspicious lesions or rash, good texture and turgor. NEURO: awake, alert, and oriented to person, place and time. There were no obvious focal neurologic abnormalities. EXTREMITIES: No joint tenderness, effusion, or edema noted. Course Course Level of Care: Express Care Visit Vital Signs Vital signs: Vital Signs Temperature 36.3 C L 06/08/24 14:40 Pulse Rate 84 06/08/24 14:40 Respiratory Rate 16 06/08/24 14:40 Blood Pressure 130/79 06/08/24 14:40 Pulse Oximetry 100 06/08/24 14:40 Oxygen Delivery Room Air 06/08/24 14:40 Temperature 36.3 C L 06/08/24 14:40 Pulse Rate 84 06/08/24 14:40 Respiratory Rate 16 06/08/24 14:40 Blood Pressure 130/79 06/08/24 14:40 Pulse Oximetry 100 06/08/24 14:40 Oxygen Delivery Room Air 06/08/24 14:40 Reviewed MDM - URI/Sore Throat MDM Narrative Medical decision making narrative: Please be advised this is a medical document. It is intended for [id number] communication. It is written in medical language and may contain unfamiliar abbreviations or verbiage. Medical documents are intended to carry relevant information, facts as evident, and the clinical opinion of the practitioner at the time of the encounter. This report may have been done utilizing a voice recognition system. Attempts have been made to correct errors. However, there may be uncorrected grammatical, spelling, and recognition errors present. The file time of this note does not necessarily represent the time of service. Discharge Plan Discharge Clinical Impression: Encounter to obtain excuse from work Patient Disposition: Home, Self-Care Condition: Stable Patient Language: Latvian Prescriptions: No Action No Home Medications Follow-up/Referrals: PHYSICIAN,CHICKEN RAISER [Primary Care Provider] - Stand Alone Forms: Work/School Release IP Time of Disposition: 14:46
== END 2024-06-08 14:50 | disposition home or self-care (01) ==
PROVIDERS: Emergency Provider Nurse Practitioner Family
DX: Z02.79 Encounter for issue of other medical certificate (principal); Z87.891 Personal history of nicotine dependence
CPT/HCPCS: 99211; G0463